=== PATIENT | male | born 1970 | race Caucasian/White ===

== ENCOUNTER 2020-04-11 17:34 | Emergency (ER) | payer OTHER ==
[2020-04-11] MEDS ORDERED: Adacel Vial IM ONE ×2 (17:42→17:54)
[2020-04-11 18:10] VITALS: PULSE 84; O2SAT 99
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
[2020-04-11 19:26] VITALS: BP 148/81
[2020-04-11] MEDS ORDERED: KEFLEX 500 MG PO ONE (19:28)
[2020-04-11] MEDS ORDERED: KEFLEX 500 MG ONE (19:29)
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
== END 2020-04-11 19:36 | disposition home or self-care (01) ==
LOC: ED 17:34
DX: S06.0X1A Concussion with loss of consciousness of 30 minutes or less, initial encounter (principal); S01.81XA Laceration without foreign body of other part of head, initial encounter; V89.2XXA Person injured in unspecified motor-vehicle accident, traffic, initial encounter
CPT/HCPCS: 12013; 70450; 72125; 90471; 90715; 99284; A9270-GY